=== PATIENT | female | born 1970 | race Caucasian/White ===

== ENCOUNTER → 2019-01-12 | Outpatient (CLI) | payer OTHER | END | disposition home or self-care (01) | LOC: MAMO-SONO 08:15 | DX: N84.0 Polyp of corpus uteri (principal); Z12.31 Encounter for screening mammogram for malignant neoplasm of breast; N60.11 Diffuse cystic mastopathy of right breast; N60.12 Diffuse cystic mastopathy of left breast ==

== ENCOUNTER 2019-04-14 11:04 | Inpatient (IN) | payer OTHER ==
[~2019-04-14] VITALS: Ht 172.7 cm; Wt 113.4 kg
[2019-04-14] MEDS ORDERED: [UNRECOGNIZED DRUG - OTHER] MC (11:15)
[2019-04-16] MEDS ORDERED: MEGESTROL ACETA40 MG PO (09:20)
[2019-04-16] MEDS ORDERED: PROFERRIN-FORT1 EACH PO (09:26)
== END 2019-04-16 11:13 | disposition home or self-care (01) | DRG 743 ==
LOC: ER 11:04 → OB/GYN 19:55
PROVIDERS: ADMIT Obstetrics & Gynecology
PROC: 0UDB8ZZ Extraction of Endometrium, Via Natural or Artificial Opening Endoscopic (ICD-10-PCS; 2019-04-15)
PROC: 30233N1 Transfusion of Nonautologous Red Blood Cells into Peripheral Vein, Percutaneous Approach (ICD-10-PCS; 2019-04-15)
PROC: 0UB98ZZ Excision of Uterus, Via Natural or Artificial Opening Endoscopic (ICD-10-PCS; principal; 2019-04-15 13:30)
DX: N92.1 Excessive and frequent menstruation with irregular cycle (principal); D25.0 Submucous leiomyoma of uterus; D64.89 Other specified anemias; E11.9 Type 2 diabetes mellitus without complications; Z79.4 Long term (current) use of insulin

== ENCOUNTER 2019-05-31 13:45 | Inpatient (IN) | payer OTHER ==
[~2019-05-31] VITALS: Ht 172.7 cm; Wt 109.8 kg
[~2019-05-31 13:45] MED LIST: MEGESTROL ACETA40 MG PO; PROFERRIN-FORT1 EACH PO; [UNRECOGNIZED DRUG - OTHER] MC
[2019-06-06] MEDS ORDERED: Tylenol #3 PO (12:03)
== END 2019-06-06 12:35 | DRG 743 ==
LOC: ADM 13:45 → EDSTATUS 13:45 → O/R 06-03 06:00 → OB/GYN 06-03 06:00 → SURH 06-03 10:00 → OB/GYN 06-03 13:09 → SURH 06-03 13:45 → OB/GYN 06-06 12:35
PROVIDERS: ADMIT Obstetrics & Gynecology
PROC: 0DNU0ZZ Release Omentum, Open Approach (ICD-10-PCS; 2019-06-03)
PROC: 0UT50ZZ Resection of Right Fallopian Tube, Open Approach (ICD-10-PCS; 2019-06-03)
PROC: 0UT00ZZ Resection of Right Ovary, Open Approach (ICD-10-PCS; 2019-06-03)
PROC: 0TJB8ZZ Inspection of Bladder, Via Natural or Artificial Opening Endoscopic (ICD-10-PCS; 2019-06-03)
PROC: 0UT90ZZ Resection of Uterus, Open Approach (ICD-10-PCS; principal; 2019-06-03 10:00)
DX: D25.1 Intramural leiomyoma of uterus (principal); D25.0 Submucous leiomyoma of uterus; N73.6 Female pelvic peritoneal adhesions (postinfective); N80.2 Endometriosis of fallopian tube